=== PATIENT | female | born 1985 | race Caucasian/White ===

== ENCOUNTER 2023-07-22 05:24 | Day surgery (SDC) | payer OTHER ==
[~2023-07-22] VITALS: Ht 157.5 cm; Wt 63.0 kg
[2023-07-22] MEDS ORDERED: fentaNYL citrate 0.05 MG/ML VIAL ONE (07:33)
[2023-07-22] MEDS: fentaNYL citrate 0.05 MG/ML VIAL IVP ONE (07:42)
[2023-07-22] MEDS: LIDOCAINE 2% 100 MG/5 ML UJET TP ONE (07:52)
== END 2023-07-22 08:55 | disposition home or self-care (01) ==
LOC: MDS 05:24 → MMU 06:33 → MDS 08:55
PROVIDERS: ATTEND Internal Medicine Gastroenterology
DX: Z12.11 Encounter for screening for malignant neoplasm of colon (principal); K57.30 Diverticulosis of large intestine without perforation or abscess without bleeding; M33.10 Other dermatomyositis, organ involvement unspecified; Z87.442 Personal history of urinary calculi; Z90.49 Acquired absence of other specified parts of digestive tract; Z80.0 Family history of malignant neoplasm of digestive organs; Z79.899 Other long term (current) drug therapy; Z98.890 Other specified postprocedural states
CPT/HCPCS: 45378; J3010